=== PATIENT | female | born 1995 | race Caucasian/White ===

== ENCOUNTER → 2016-06-26 | Outpatient (REF) | payer BC ==
[~2016-06-26] MED LIST: AMOX500C PO; IBUP800T23 PO; PERC5TAB6 PO; PRENTAB9 PO
== END ==
LOC: M LAB REF 17:18
PROVIDERS: ATTEND Obstetrics & Gynecology
DX: Z36 Encounter for antenatal screening of mother (principal)

== ENCOUNTER 2016-07-03 05:35 | Inpatient (IN) | payer BC, MEDICAID ==
[2016-07-03] VITALS (8 sets, daily range): BP systolic 120–147; BP diastolic 65–85
[~2016-07-03] VITALS: Ht 177.8 cm; Wt 87.5 kg
[~2016-07-03 05:35] MED LIST changes: -IBUP800T23 PO; -PERC5TAB6 PO
[2016-07-03] MEDS ORDERED: LR 500 ML IV ONE (06:00)
[2016-07-03] MEDS ORDERED: BICITRA 30ML SOLN UDC PO ONE (06:15)
[2016-07-03 06:28] LABS: MEAN CORPUSCULAR HEMOGLOBIN 26.9 pg (27.0-33.0); MEAN CORPUSCULAR HGB CONC 31.9 g/dl (32.0-36.5); MEAN CORPUSCULAR VOLUME 84.5 fl (80.0-96.0); RED CELL DISTRIBUTION WIDTH 14.6 % (11.5-14.5); WHITE BLOOD COUNT 10.3 K/mm3 (4.0-10.0)
[2016-07-03] MEDS ORDERED: LR 1,000 ML IV SCH ×2 (06:30→09:30)
[2016-07-03] MEDS ORDERED: IBUP800T23 PO (07:38)
[2016-07-03] MEDS ORDERED: PERC5TAB6 PO (07:40)
[2016-07-03] MEDS ORDERED: NALOXONE INJ 0.4 MG/1 ML VIAL (J2310) IV PRN ×2 (07:59)
[2016-07-03] MEDS ORDERED: METOCLOPRAMIDE INJ 10MG/2ML VIAL (J2765) IV PRN ×2 (07:59→09:30)
[2016-07-03] MEDS ORDERED: ONDANSETRON 4MG/2ML VIAL (J2405) IV PRN ×3 (07:59→09:45)
[2016-07-03] MEDS ORDERED: NALBUPHINE HCL 10 MG/ML AMP (J2300) IV PRN (07:59)
[2016-07-03] MEDS ORDERED: KETOROLAC 60 MG/2 ML VIAL (J1885) As Ordered ONE (08:37)
[2016-07-03] MEDS ORDERED: ONDANSETRON 4MG/2ML VIAL (J2405) As Ordered ONE (08:37)
[2016-07-03] MEDS ORDERED: MORPHINE PRES-FREE INJ 10 MG/10 ML VIAL (J2274) As Ordered ONE (08:37)
[2016-07-03] MEDS ORDERED: ePHEDrine SULFATE 25 MG/5 ML(5MG/ML) SYRINGE As Ordered ONE (08:37)
[2016-07-03] MEDS ORDERED: PHENYLephrine HCL 500 MCG/5 ML (100MCG/ML) SYRINGE (J2370) As Ordered ONE (08:37)
[2016-07-03] MEDS ORDERED: OXYTOCIN INJ 10 UNITS/ML VIAL (J2590) As Ordered ONE ×2 (08:37→08:56)
[2016-07-03] MEDS ORDERED: fentaNYL 100 MCG/2 ML INJECTION (J3010) IV PRN (09:30)
[2016-07-03] MEDS ORDERED: PERCOCET 5MG/325MG TAB PO PRN ×2 (09:30→09:45)
[2016-07-03] MEDS: LR 1,000 ML IV SCH ×2 (09:32→17:32)
[2016-07-03] MEDS ORDERED: OXYTOCIN DRIP 30 UNITS in APPROPRIATE DILUENT 1 EA IV SCH (09:32)
--- NOTE | 2016-07-03 09:43 | RO ---
DATE OF PROCEDURE: 07/03/2016 PREPROCEDURE DIAGNOSIS: Marginal placenta previa. POSTPROCEDURE DIAGNOSIS: Placenta previa. PROCEDURE: Primary lower transverse section. SURGEON: Tiffany Hyatt MD ELECTRONIC ORGAN TECHNICIAN: Cecilio Guevara DO First year resident [employer] DO ANESTHESIA: Spinal. ESTIMATED BLOOD LOSS: 500 mL. INTRAVENOUS FLUIDS: 200 mL of lactated ringer solution. URINE OUTPUT: 200 mL. PREOPERATIVE ANTIBIOTICS: 2 grams of Ancef. OPERATIVE FINDINGS: Live born female , scores 8 and 9, weight 2710 grams or 6 pounds 1 ounce. Placenta posterior and over cervix, consistent with placenta previa. SPECIMENS: Cord blood and placenta. DESCRIPTION OF PROCEDURE: After informed consent was obtained and written content was reviewed, the patient was brought to the operating room where spinal anesthesia was then placed. She was placed in the supine position with a left lateral tilt. A Bishop catheter was then placed and set to gravity. She was then prepped and draped in normal sterile fashion. A time out in the operating room was then performed identifying the patient, the procedure to be performed, as well as drug allergies. Anesthesia was tested and deemed to be adequate. A Pfannenstiel skin incision was then made and carried down to the underlying rectus fascia. The fascia was then scored and this incision was extended bilaterally. The fascia was then dissected off the underlying rectus muscles both superiorly and inferiorly. The rectus muscles were in the midline. The peritoneum was then entered sharply. The vesicouterine peritoneum was then identified and it was then excised to create a bladder flap. The bladder blade was placed to retract back the bladder. A curvilinear incision was then made in the lower uterine segment. Amniotomy was then performed productive of clear fluid. The head was brought to the level of the incision and was delivered with the aid of a Kiwi vacuum atraumatically, followed by delivery of shoulders and corpus. The cord was clamped times two and was cut. The was brought over to the warmer with a good cry. The placenta was then delivered grossly intact. The uterus was then exteriorized and cleared of all clots and debris. The uterine incision was then closed in two layers using #0 Vicryl for the first layer in a running locking fashion, followed by a second layer for imbrication in a running nonlocking fashion. The abdomen was then suctioned. The uterus was returned to the patient's abdomen. It was reinspected and noted to be hemostatic. The anterior peritoneum was then reapproximated using #3-0 Vicryl. The rectus muscles were reapproximated using #3-0 Vicryl. The fascia was then closed using #0 Vicryl in a running nonlocking fashion. The subcutaneous tissue was then suctioned and irrigated. Jazz's fascia was reapproximated with #3-0 Vicryl. Several subdermal stitches were placed with #3-0 Vicryl. The skin was closed with #4-0 Monocryl in a subcuticular fashion. The incision was then cleaned and dried. Mastisol was applied above and below the incision. Steri-Strips were applied over the incision. The incision was then dressed. The patient was then taken to recovery in stable condition. Counts were correct. The couple has decided to name their daughter, Med. MARIBETH
[2016-07-03] MEDS ORDERED: MOM 30ML SUSPENSION UDC PO PRN (09:45)
[2016-07-03] MEDS ORDERED: DOCUSATE SODIUM 100 MG CAP PO PRN (09:45)
[2016-07-03] MEDS ORDERED: RHOGAM 300 MCG (1500 IU) INJ (J2790) IM SCH (09:45)
[2016-07-03] MEDS ORDERED: MEASLES,MUMPS,RUBELLA VACCINE INJ (MMR-II) (90707) SC SCH (09:45)
[2016-07-03] MEDS: KETOROLAC 30 MG/ML VIAL (J1885) IV SCH ×2 (15:08→21:02)
[2016-07-04 02:17] VITALS: BP 136/67
[2016-07-04] MEDS: KETOROLAC 30 MG/ML VIAL (J1885) IV SCH ×2 (02:55→09:02)
[2016-07-04 06:13] VITALS: BP 144/70
[2016-07-04 07:10] LABS: MEAN CORPUSCULAR HEMOGLOBIN 27.1 pg (27.0-33.0); MEAN CORPUSCULAR HGB CONC 31.7 g/dl (32.0-36.5); MEAN CORPUSCULAR VOLUME 85.4 fl (80.0-96.0); RED CELL DISTRIBUTION WIDTH 14.7 % (11.5-14.5); WHITE BLOOD COUNT 12.7 K/mm3 (4.0-10.0)
[2016-07-04] MEDS: PRENATAL VITAMIN TAB PO SCH (09:01)
[2016-07-04 10:15] VITALS: BP 131/76
[2016-07-04] MEDS: PERCOCET 5MG/325MG TAB PO PRN ×2 (13:55→20:33)
[2016-07-04 14:03] VITALS: BP 144/84
[2016-07-04] MEDS: IBUPROFEN 800 MG TAB PO SCH (17:00)
[2016-07-04 18:06] VITALS: BP 136/77
[2016-07-04 22:00] VITALS: BP 134/87
[2016-07-05] MEDS: IBUPROFEN 800 MG TAB PO SCH ×2 (00:25→08:28)
[2016-07-05] MEDS: PERCOCET 5MG/325MG TAB PO PRN (03:56)
[2016-07-05 06:08] VITALS: BP 128/60
--- NOTE | 2016-07-05 08:05 | DSES ---
DATE OF ADMISSION: 07/03/2016 DATE OF DISCHARGE: 07/05/2016 HISTORY: 20-year-old G1 female at 37 weeks gestation presents for primary section due to low lying placenta. The placenta was approximately 1 cm from the internal os. Early revealed a complete placenta previa. HOSPITAL COURSE: On 07/03/2016 the patient underwent a primary low transverse section without complications. The patient's postoperative course was unremarkable. She had adequate return of bladder and bowel function. She was deemed stable for discharge on postoperative day number two. ADMISSION DIAGNOSIS: , 37 weeks, low lying placenta. DISCHARGE DIAGNOSIS: Delivered. PROCEDURE: Primary low transverse section. DISPOSITION: The patient is to followup with Dr. Hyatt in two weeks. Postoperative instructions were reviewed.
[2016-07-05] MEDS: PRENATAL VITAMIN TAB PO SCH (08:27)
== END 2016-07-05 12:35 | disposition home or self-care (01) | DRG 540 ==
LOC: M LDI 05:35 → M OBS 11:07
PROVIDERS: ADMIT Obstetrics & Gynecology; ATTEND Obstetrics & Gynecology
PROC: 10D00Z1 Extraction of Products of Conception, Low, Open Approach (ICD-10-PCS; principal; 2016-07-03 07:30)
DX: O44.23 Partial placenta previa NOS or without hemorrhage, third trimester (principal); Z37.0 Single live birth; Z3A.37 37 weeks gestation of pregnancy; Z87.891 Personal history of nicotine dependence

== ENCOUNTER → 2017-09-26 | Outpatient (CLI) | payer BC, MEDICAID | LOC: M RAD 10:53 | DX: Z34.82 Encounter for supervision of other normal pregnancy, second trimester (principal) | CPT/HCPCS: 76817 ==

== ENCOUNTER → 2017-11-25 | Outpatient (CLI) | payer BC, MEDICAID ==
[2017-11-25 14:33] LABS: BASO % 0.2 % (0.0-1.0); EOS # 0.1 10^3/uL (0.0-0.50); EOS % 0.4 % (0.0-3.0); HEMATOCRIT 33.6 % (36.0-47.0); HEMOGLOBIN 11.1 g/dl (12.0-15.5); IMMATURE GRANULOCYTE % 0.5 % (0-3.0); LYMPH # 2.6 10^3/uL (1.5-6.5); LYMPH % 19.9 % (24.0-44.0); MEAN CORPUSCULAR HEMOGLOBIN 28.7 pg (27.0-33.0); MEAN CORPUSCULAR VOLUME 86.8 fl (80.0-96.0); MONO # 0.7 10^3/uL (0.0-0.8); MONO % 5.1 % (0.0-5.0); NEUTROPHILS # 9.6 10^3/uL (1.8-7.7); NEUTROPHILS % 73.9 % (36.0-66.0); PLATELET COUNT, AUTOMATED 237 10^3/uL (150-450); RED BLOOD COUNT 3.87 10^6/uL (4.00-5.40); RED CELL DISTRIBUTION WIDTH 14.4 % (11.5-14.5)
[2017-11-25 14:52] LABS: GLUCOSE CHALLENGE TEST 1 HOUR 99 MG/DL (LESS THAN 140)
== END ==
LOC: M LAB 13:03
DX: Z34.82 Encounter for supervision of other normal pregnancy, second trimester (principal); Z3A.00 Weeks of gestation of pregnancy not specified
CPT/HCPCS: 82950

== ENCOUNTER → 2017-11-25 | Outpatient (CLI) | payer BC, MEDICAID | LOC: M RAD 11:45 | DX: Z34.82 Encounter for supervision of other normal pregnancy, second trimester (principal) | CPT/HCPCS: 76816 ==

== ENCOUNTER → 2017-12-20 | Outpatient (REF) | payer BC ==
[2017-12-20 19:54] LABS: AMORPHOUS SEDIMENT LARGE (NEGATIVE); APPEARANCE, URINE CLOUDY (CLEAR); BACTERIA, URINE AUTO 1+ (NEGATIVE); BILIRUBIN, URINE AUTO NEGATIVE (NEGATIVE); BLOOD, URINE BLOOD NEGATIVE (NEGATIVE); COLOR, URINE YELLOW (YELLOW); GLUCOSE, URINE (UA) AUTO NEGATIVE (NEGATIVE); KETONE, URINE AUTO NEGATIVE (NEGATIVE); LEUKOCYTE ESTERASE, URINE AUTO NEGATIVE (NEGATIVE); MUCUS, URINE SMALL (NEGATIVE); NITRITE, URINE AUTO NEGATIVE (NEGATIVE); PROTEIN, URINE AUTO NEGATIVE (NEGATIVE); RBC, URINE AUTO 1 /HPF (0-3); SPECIFIC GRAVITY URINE AUTO 1.013 (1.002-1.035); SQUAMOUS EPITHELIAL CELL UR AU 9 /HPF (0-6); UROBILINOGEN, URINE AUTO 0.2 mg/dL (0.0-2.0); WBC, URINE AUTO 0 /HPF (0-3)
== END ==
LOC: M LAB REF 17:05
DX: Z34.82 Encounter for supervision of other normal pregnancy, second trimester (principal); Z3A.00 Weeks of gestation of pregnancy not specified

== ENCOUNTER 2018-02-02 11:27 | Outpatient (CLI) | payer BC ==
[~2018-02-02 11:27] MED LIST changes: -AMOX500C PO; +NITROFURANTOIN (MACROBID) 100 MG CAP PO; -PRENTAB9 PO
[2018-02-02] MEDS: LACTATED RINGER'S 1000 ML IV (12:26)
[2018-02-02 12:40] LABS: APPEARANCE, URINE HAZY (CLEAR); BACTERIA, URINE AUTO 1+ (NEGATIVE); BILIRUBIN, URINE AUTO NEGATIVE (NEGATIVE); BLOOD, URINE BLOOD 2+ (NEGATIVE); COLOR, URINE YELLOW (YELLOW); GLUCOSE, URINE (UA) AUTO NEGATIVE (NEGATIVE); KETONE, URINE AUTO NEGATIVE (NEGATIVE); LEUKOCYTE ESTERASE, URINE AUTO NEGATIVE (NEGATIVE); MUCUS, URINE SMALL (NEGATIVE); NITRITE, URINE AUTO NEGATIVE (NEGATIVE); PROTEIN, URINE AUTO 1+ mg/dL (NEGATIVE); RBC, URINE AUTO TNTC /HPF (0-3); SPECIFIC GRAVITY URINE AUTO 1.012 (1.002-1.035); SQUAMOUS EPITHELIAL CELL UR AU 8 /HPF (0-6); UROBILINOGEN, URINE AUTO 0.2 mg/dL (0.0-2.0); WBC, URINE AUTO 4 /HPF (0-3)
[2018-02-02] MEDS: LR 1,000 ML IV (13:20)
[2018-02-02] MEDS: NITROFURANTOIN (MACROBID) 100 MG CAP PO (14:00)
== END 2018-02-02 14:43 | disposition home or self-care (01) ==
LOC: M LDO 11:27
DX: O26.893 Other specified pregnancy related conditions, third trimester (principal); R10.9 Unspecified abdominal pain; O23.43 Unspecified infection of urinary tract in pregnancy, third trimester; O47.03 False labor before 37 completed weeks of gestation, third trimester; Z3A.36 36 weeks gestation of pregnancy
CPT/HCPCS: 59025

== ENCOUNTER → 2018-02-04 | Outpatient (REF) | payer BC, MEDICAID | LOC: M LAB REF 17:38 | DX: Z34.83 Encounter for supervision of other normal pregnancy, third trimester (principal) | CPT/HCPCS: 87081 ==

== ENCOUNTER 2018-02-18 05:34 | Inpatient (IN) | payer BC, MEDICAID ==
[2018-02-18] MEDS: LR 1,000 ML IV ×4 (06:20→17:46)
[2018-02-18 06:27] LABS: HEMATOCRIT 34.1 % (36.0-47.0); HEMOGLOBIN 10.8 g/dl (12.0-15.5); MEAN CORPUSCULAR HEMOGLOBIN 26.7 pg (27.0-33.0); MEAN CORPUSCULAR HGB CONC 31.7 g/dl (32.0-36.5); MEAN CORPUSCULAR VOLUME 84.4 fl (80.0-96.0); PLATELET COUNT, AUTOMATED 226 10^3/uL (150-450); RED BLOOD COUNT 4.04 10^6/uL (4.00-5.40); RED CELL DISTRIBUTION WIDTH 14.6 % (11.5-14.5); WHITE BLOOD COUNT 9.9 10^3/uL (4.0-10.0)
[2018-02-18] MEDS ORDERED: MORPHINE PRES-FREE INJ 10 MG/10 ML VIAL (J2274) As Ordered (07:18)
[2018-02-18] MEDS ORDERED: OXYTOCIN INJ 10 UNITS/ML VIAL (J2590) As Ordered ×2 (07:19)
[2018-02-18] MEDS: BICITRA 30ML SOLN UDC PO (07:19)
[2018-02-18] MEDS ORDERED: KETOROLAC 60 MG/2 ML VIAL (J1885) As Ordered (07:24)
[2018-02-18] MEDS ORDERED: ONDANSETRON 4MG/2ML VIAL (J2405) As Ordered (07:24)
[2018-02-18] MEDS ORDERED: NALOXONE INJ 0.4 MG/1 ML VIAL (J2310) IV ×2 (07:49)
[2018-02-18] MEDS ORDERED: ONDANSETRON 4MG/2ML VIAL (J2405) IV ×2 (07:49→09:45)
[2018-02-18] MEDS ORDERED: ATROPINE SULF 0.4 MG/ML 1ML VIAL (J0461) As Ordered (07:57)
[2018-02-18] MEDS ORDERED: ePHEDrine SULFATE 25 MG/5 ML(5MG/ML) SYRINGE As Ordered (07:58)
[2018-02-18] MEDS ORDERED: PERCOCET 5MG/325MG TAB PO (09:45)
[2018-02-18] MEDS ORDERED: fentaNYL 100 MCG/2 ML INJECTION (J3010) IV (09:45)
[2018-02-18] MEDS ORDERED: OXYTOCIN 30 UNITS IN 0.9% NaCl 500ML IV BAG (J2590) As Ordered (09:49)
[2018-02-18] MEDS: OXYTOCIN DRIP 30 UNITS in APPROPRIATE DILUENT 1 EA IV (10:00)
[2018-02-18] MEDS ORDERED: MEASLES,MUMPS,RUBELLA VACCINE INJ (MMR-II) (90707) SC (10:00)
[2018-02-18] MEDS ORDERED: RHOGAM 300 MCG (1500 IU) INJ (J2790) IM (10:00)
[2018-02-18] MEDS ORDERED: MOM 30ML SUSPENSION UDC PO (10:00)
[2018-02-18] MEDS: METOCLOPRAMIDE INJ 10MG/2ML VIAL (J2765) IV (11:59)
[2018-02-18] MEDS: KETOROLAC 30 MG/ML VIAL (J1885) IV ×2 (15:29→20:56)
[2018-02-18] MEDS: DOCUSATE SODIUM 100 MG CAP PO (20:56)
[2018-02-18] MEDS: NALBUPHINE HCL 10 MG/ML AMP (J2300) IV (21:06)
[2018-02-19] MEDS: KETOROLAC 30 MG/ML VIAL (J1885) IV (03:24)
[2018-02-19] MEDS: PERCOCET 5MG/325MG TAB PO ×3 (03:57→19:35)
[2018-02-19 07:03] LABS: HEMATOCRIT 24.3 % (36.0-47.0); MEAN CORPUSCULAR HEMOGLOBIN 27.2 pg (27.0-33.0); MEAN CORPUSCULAR HGB CONC 32.1 g/dl (32.0-36.5); MEAN CORPUSCULAR VOLUME 84.7 fl (80.0-96.0); PLATELET COUNT, AUTOMATED 178 10^3/uL (150-450); RED BLOOD COUNT 2.87 10^6/uL (4.00-5.40); RED CELL DISTRIBUTION WIDTH 14.7 % (11.5-14.5); WHITE BLOOD COUNT 13.5 10^3/uL (4.0-10.0)
[2018-02-19 07:06] LABS: HEMOGLOBIN 7.8 g/dl (12.0-15.5)
[2018-02-19] MEDS: PRENATAL VITAMINS CHEWABLE TABLET PO (08:09)
[2018-02-19] MEDS: IBUPROFEN 800 MG TAB PO ×2 (11:16→18:37)
[2018-02-20] MEDS: IBUPROFEN 800 MG TAB PO ×2 (03:13→10:01)
[2018-02-20] MEDS: PERCOCET 5MG/325MG TAB PO (03:13)
[2018-02-20] MEDS: PRENATAL VITAMINS CHEWABLE TABLET PO (10:00)
== END 2018-02-20 16:14 | disposition home or self-care (01) | DRG 540 ==
LOC: M LDI 05:34 → M OBS 11:29
PROVIDERS: Obstetrics & Gynecology
PROC: 10D00Z1 Extraction of Products of Conception, Low, Open Approach (ICD-10-PCS; principal; 2018-02-18 07:30)
DX: O34.211 Maternal care for low transverse scar from previous cesarean delivery (principal); Z3A.39 39 weeks gestation of pregnancy; Z37.0 Single live birth

== ENCOUNTER 2018-04-16 22:15 | Emergency (ER) | payer BC, MEDICAID ==
[2018-04-16] MEDS: MORPHINE 4 MG/ML 1ML VIAL/SYRINGE (J2270) IV (23:18)
[2018-04-16 23:19] LABS: BASO % 0.3 % (0.0-1.0); EOS # 0.1 10^3/uL (0.0-0.50); EOS % 0.9 % (0.0-3.0); HEMATOCRIT 35.1 % (36.0-47.0); IMMATURE GRANULOCYTE % 0.2 % (0-3.0); LYMPH # 3.2 10^3/uL (1.5-6.5); LYMPH % 33.8 % (24.0-44.0); MEAN CORPUSCULAR HEMOGLOBIN 26.2 pg (27.0-33.0); MEAN CORPUSCULAR HGB CONC 31.3 g/dl (32.0-36.5); MEAN CORPUSCULAR VOLUME 83.6 fl (80.0-96.0); MONO # 0.6 10^3/uL (0.0-0.8); MONO % 6.7 % (0.0-5.0); NEUTROPHILS # 5.5 10^3/uL (1.8-7.7); NEUTROPHILS % 58.1 % (36.0-66.0); PLATELET COUNT, AUTOMATED 244 10^3/uL (150-450); RED CELL DISTRIBUTION WIDTH 15.9 % (11.5-14.5); WHITE BLOOD COUNT 9.5 10^3/uL (4.0-10.0)
[2018-04-16 23:51] LABS: ALBUMIN 3.9 GM/DL (3.2-5.2); ALKALINE PHOSPHATASE 83 U/L (45-117); ALT/SGPT 28 U/L (12-78); ANION GAP 3 MEQ/L (8-16); AST/SGOT 14 U/L (7-37); BILIRUBIN,TOTAL 0.2 MG/DL (0.2-1.0); BLOOD UREA NITROGEN 13 MG/DL (7-18); C REACTIVE PROTEIN QUANTITATIV < 0.30 MG/DL (0.00-0.30); CALCIUM LEVEL 8.5 MG/DL (8.5-10.1); CARBON DIOXIDE LEVEL 29 MEQ/L (21-32); CHLORIDE LEVEL 107 MEQ/L (98-107); CREATININE FOR GFR 0.76 MG/DL (0.55-1.30); GLOMERULAR FILTRATION RATE > 60.0 (>60); GLUCOSE, FASTING 87 MG/DL (70-100); POTASSIUM SERUM 4.1 MEQ/L (3.5-5.1); SODIUM LEVEL 139 MEQ/L (136-145); TOTAL PROTEIN 6.9 GM/DL (6.4-8.2)
[2018-04-16 23:52] LABS: KETONE, URINE AUTO RFX NEGATIVE (NEGATIVE); LEUKOCYTE ESTERASE UR AUTO RFX NEGATIVE (NEGATIVE); MUCUS, URINE RFX SMALL (NEGATIVE); NITRITE, URINE AUTO RFX NEGATIVE (NEGATIVE); RBC, URINE AUTO RFX 1 /HPF (0-3); SPECIFIC GRAVITY UR AUTO RFX 1.026 (1.002-1.035); SQUAM EPITHELIAL CELL UR AURFX 4 /HPF (0-6); WBC, URINE AUTO RFX 4 /HPF (0-3)
[2018-04-17 00:32] LABS: CONTROL LINE UCG INT CTR LINE PRESENT; URINE PREG TEST NEGATIVE (NEGATIVE)
[2018-04-17] MEDS: NORCO 5/325MG TABLET (BULK FOR ED) PO (01:00)
== END 2018-04-17 01:10 | disposition home or self-care (01) ==
LOC: M ED 04-17 01:10
DX: N83.291 Other ovarian cyst, right side (principal); D25.2 Subserosal leiomyoma of uterus; F41.9 Anxiety disorder, unspecified; F32.9 Major depressive disorder, single episode, unspecified; Z88.0 Allergy status to penicillin
CPT/HCPCS: J2270

== ENCOUNTER → 2018-12-26 | Outpatient (REF) | payer BC, MEDICAID ==
[~2018-12-26] MED LIST changes: +AMOX500C PO; +HYDR-3715 PO; +IBUP1TAB7 PO; +NITR100C2 PO; -NITROFURANTOIN (MACROBID) 100 MG CAP PO; +PERC5TAB12 PO; +PERCOCET PO; +PRENTAB9 PO
== END ==
LOC: M LAB REF 17:17
PROVIDERS: ATTEND Advanced Practice Midwife
DX: N92.6 Irregular menstruation, unspecified (principal); Z12.4 Encounter for screening for malignant neoplasm of cervix

== ENCOUNTER → 2018-12-26 | Outpatient (CLI) | payer BC, MEDICAID ==
[2018-12-26 18:00] LABS: HEMATOCRIT 37.2 % (36.0-47.0); HEMOGLOBIN 12.2 g/dl (12.0-15.5); MEAN CORPUSCULAR HEMOGLOBIN 27.7 pg (27.0-33.0); MEAN CORPUSCULAR HGB CONC 32.8 g/dl (32.0-36.5); MEAN CORPUSCULAR VOLUME 84.5 fl (80.0-96.0); PLATELET COUNT, AUTOMATED 219 10^3/uL (150-450); WHITE BLOOD COUNT 8.2 10^3/uL (4.0-10.0)
[2018-12-26 18:03] LABS: HCG, SERUM QUALITATIVE NEGATIVE (NEGATIVE)
[2018-12-26 18:11] LABS: LUTEINIZING HORMONE 14.2 mIU/mL
[2018-12-30 00:07] LABS: DEHYDROEPIANDROSTERONE SULFATE 405.4 ug/dL (110.0-431.7); TESTOSTERONE FREE (DIRECT) 2.6 pg/mL (0.0-4.2)
== END ==
LOC: M SMT 14:43
PROVIDERS: ATTEND Advanced Practice Midwife
DX: L68.0 Hirsutism (principal); N92.6 Irregular menstruation, unspecified

== ENCOUNTER → 2019-01-01 | Outpatient (CLI) | payer BC, MEDICAID ==
--- NOTE | 2019-01-02 03:33 | REP ---
Clinical: abnormal bleeding. Menorrhagia Technique: Transabdominal pelvic ultrasound followed by transvaginal examination for better evaluation of the endometrium and adnexa with color Doppler evaluation of the ovaries. Findings: Bladder is unremarkable and measures 7.9 x 7.1 x 2.5 cm . Normal anteverted uterus measures 9.3 x 3.9 x 4.2 cm . The endometrial complex measures 4.1 mm thickness. No discrete uterine or endometrial abnormalities are appreciated. section scar noted. Bilateral ovaries are normal in appearance and vascularity without evidence for torsion. Right ovary measures 4.0 x 2.2 x 3.6 cm ; R I = 0.37 . Left ovary measures 3.7 x 1.1 x 2.4 cm ; R I = 0.49 . No pelvic fluid or adnexal mass lesion. . Impression: 1. Normal pelvic ultrasound. Electronically Signed by Pito Lezama MD 01/02/2019 03:24 A
== END ==
LOC: M RAD 13:16
PROVIDERS: ATTEND Advanced Practice Midwife
DX: N92.6 Irregular menstruation, unspecified (principal)

== ENCOUNTER → 2019-01-23 | Outpatient (REF) | payer BC, MEDICAID ==
[2019-01-23 20:33] LABS: CHLAMYDIA DNA AMPLIFICATION NEGATIVE (NEGATIVE); GC DNA AMPLIFICATION NEGATIVE (NEGATIVE)
== END ==
LOC: M LAB REF 17:04
PROVIDERS: ATTEND Advanced Practice Midwife
DX: N92.6 Irregular menstruation, unspecified (principal)

== ENCOUNTER → 2020-07-07 | Outpatient (REF) | payer BC, MEDICAID ==
[2020-07-07 20:12] LABS: FREE T4 1.1 NG/DL (0.76-1.46); THYROID STIMULATING HORMONE 1.25 uIU/ML (0.358-3.740)
== END ==
LOC: M PLALAB 14:37
PROVIDERS: ATTEND Advanced Practice Midwife
DX: Z12.4 Encounter for screening for malignant neoplasm of cervix (principal); E04.9 Nontoxic goiter, unspecified
CPT/HCPCS: 36415; 84439; 84443; G0123

== ENCOUNTER → 2021-07-05 | Outpatient (REF) | payer MEDICAID ==
[2021-07-05 11:39] LABS: HEMATOCRIT 38.2 % (36.0-47.0); HEMOGLOBIN 12.3 g/dl (12.0-15.5); MEAN CORPUSCULAR HEMOGLOBIN 28.6 pg (27.0-33.0); MEAN CORPUSCULAR HGB CONC 32.2 g/dl (32.0-36.5); MEAN CORPUSCULAR VOLUME 88.8 fl (80.0-96.0); PLATELET COUNT, AUTOMATED 238 10^3/uL (150-450); WHITE BLOOD COUNT 6.9 10^3/uL (4.0-10.0)
[2021-07-05 12:30] LABS: ALT/SGPT 19 U/L (12-78); BILIRUBIN,TOTAL 0.4 MG/DL (0.2-1.0); BLOOD UREA NITROGEN 12 MG/DL (7-18); CALCIUM LEVEL 9.4 MG/DL (8.5-10.1); CARBON DIOXIDE LEVEL 30 MEQ/L (21-32); CHLORIDE LEVEL 108 MEQ/L (98-107); CHOLESTEROL LEVEL 188 MG/DL (<200); CHOLESTEROL RISK RATIO 2.379 (<5); CREATININE FOR GFR 0.85 MG/DL (0.55-1.30); FREE T4 1.15 NG/DL (0.76-1.46); GLOMERULAR FILTRATION RATE > 60.0 (>60); GLUCOSE, FASTING 95 MG/DL (70-100); HDL CHOLESTEROL 79 MG/DL (>40); LDL CHOLESTEROL 99 MG/DL (<100); NON-HDL-C 109 MG/DL; SODIUM LEVEL 142 MEQ/L (136-145); THYROID STIMULATING HORMONE 0.963 uIU/ML (0.358-3.740); TOTAL PROTEIN 7.1 GM/DL (6.4-8.2); TRIGLYCERIDES LEVEL 49 MG/DL (<150)
== END ==
LOC: M SFHCCLAY 08:42
PROVIDERS: ATTEND Nurse Practitioner Family
DX: F32.A Depression, unspecified (principal); Z13.220 Encounter for screening for lipoid disorders

== ENCOUNTER → 2022-06-10 | Outpatient (CLI) | payer MEDICAID ==
[~2022-06-10] MED LIST changes: +CLON1TAB8 PO; +FLUO20CA22 PO; +LAMO150T3 PO; +PROP10TA56 PO
== END ==
LOC: M LABSMTC 11:05
PROVIDERS: ATTEND Anesthesiology
DX: Z01.812 Encounter for preprocedural laboratory examination (principal); Z11.52 Encounter for screening for COVID-19

== ENCOUNTER 2022-06-14 09:35 | Day surgery (SDC) | payer MEDICAID ==
[~2022-06-14] VITALS: Ht 170.2 cm; Wt 63.5 kg
[2022-06-14] MEDS ORDERED: LR 1,000 ML IV SCH ×3 (10:20→13:05)
[2022-06-14] MEDS ORDERED: LIDOCAINE 2% 100MG/5ML SDV (FOR ANES.) As Ordered ONE (10:48)
[2022-06-14] MEDS ORDERED: ROCURONIUM BROMIDE 50MG/5ML VIAL As Ordered ONE (10:48)
[2022-06-14] MEDS ORDERED: ONDANSETRON 4MG 2ML VIAL As Ordered ONE (10:48)
[2022-06-14] MEDS ORDERED: propofoL 200 MG/20 ML VIAL As Ordered ONE (10:48)
[2022-06-14] MEDS ORDERED: fentaNYL 100 MCG/2 ML INJECTION As Ordered ONE (10:48)
[2022-06-14] MEDS ORDERED: MIDAZOLAM INJ 2MG/2ML VIAL As Ordered ONE (10:49)
[2022-06-14] MEDS ORDERED: ACETAMINOPHEN 1000MG 100ML IV BAG As Ordered ONE (10:51)
[2022-06-14] MEDS ORDERED: LIDOCAINE W/EPINEPHRINE 1% 20ML VIAL As Ordered ONE (10:51)
[2022-06-14] MEDS ORDERED: BUPIVACAINE/EPIN 0.5% 30ML VIAL As Ordered ONE (10:51)
[2022-06-14] MEDS ORDERED: oxyCODONE 5MG TAB PO PRN (11:55)
[2022-06-14] MEDS ORDERED: HYDROMORPHONE HCL 0.5 MG/ 0.5 ML SYRINGE IV PRN (11:55)
[2022-06-14] MEDS ORDERED: fentaNYL 100 MCG/2 ML INJECTION IV PRN (11:55)
[2022-06-14] MEDS ORDERED: ONDANSETRON 4MG 2ML VIAL IV PRN (11:55)
[2022-06-14 13:15] VITALS: BP 110/71
== END 2022-06-14 13:20 | disposition home or self-care (01) ==
LOC: M SDC 09:35
PROVIDERS: ATTEND Otolaryngology
DX: J35.01 Chronic tonsillitis (principal); D64.9 Anemia, unspecified; K58.9 Irritable bowel syndrome, unspecified; F32.A Depression, unspecified; F41.9 Anxiety disorder, unspecified; Z90.89 Acquired absence of other organs; Z79.899 Other long term (current) drug therapy
CPT/HCPCS: 42826; 88302; J1100; J2405

== ENCOUNTER → 2022-09-21 | Outpatient (REF) | payer MEDICAID ==
[2022-09-21 19:30] LABS: GC DNA AMPLIFICATION NEGATIVE (NEGATIVE)
== END ==
LOC: M SFHCCLAY 14:43
PROVIDERS: ATTEND Physician Assistant
DX: R30.0 Dysuria (principal); Z11.3 Encounter for screening for infections with a predominantly sexual mode of transmission

== ENCOUNTER → 2023-04-15 | Outpatient (REF) | payer BC ==
[2023-04-15 17:27] LABS: BASO % 0.3 % (0.0-1.0); EOS # 0.1 10^3/uL (0.0-0.5); EOS % 0.6 % (0.0-3.0); HEMATOCRIT 38.2 % (36.0-47.0); HEMOGLOBIN 12.3 g/dl (12.0-15.5); LYMPH # 2.6 10^3/uL (1.5-5.0); LYMPH % 22.8 % (24.0-44.0); MEAN CORPUSCULAR HEMOGLOBIN 29.2 pg (27.0-33.0); MEAN CORPUSCULAR HGB CONC 32.2 g/dl (32.0-36.5); MEAN CORPUSCULAR VOLUME 90.7 fl (80.0-96.0); MONO # 0.7 10^3/uL (0.0-0.8); MONO % 5.9 % (2.0-8.0); NEUTROPHILS # 7.9 10^3/uL (1.5-8.5); NEUTROPHILS % 70.1 % (36.0-66.0); PLATELET COUNT, AUTOMATED 251 10^3/uL (150-450); RED BLOOD COUNT 4.21 10^6/uL (4.00-5.40); WHITE BLOOD COUNT 11.2 10^3/uL (4.0-10.0)
[2023-04-15 18:01] LABS: ALKALINE PHOSPHATASE 73 U/L (46-116); ALT/SGPT 12 U/L (7.0-40); AST/SGOT 12 U/L (<34); BILIRUBIN,TOTAL 0.4 MG/DL (0.3-1.2); BLOOD UREA NITROGEN 14 MG/DL (9-23); CALCIUM LEVEL 9.2 MG/DL (8.5-10.1); CARBON DIOXIDE LEVEL 30 MMOL/L (20-31); CHLORIDE LEVEL 103 MMOL/L (98-107); CREATININE FOR GFR 0.63 MG/DL (0.55-1.30); FOLATE 18.68 NG/ML (>5.4); GLOMERULAR FILTRATION RATE > 60.0 (>60); GLUCOSE, FASTING 88 MG/DL (60-100); POTASSIUM SERUM 4.1 MMOL/L (3.5-5.1); SODIUM LEVEL 138 MMOL/L (136-145); THYROID STIMULATING HORMONE 0.873 uIU/ML (0.55-4.78); TOTAL PROTEIN 6.8 G/DL (5.7-8.2); VITAMIN B12 LEVEL 272 PG/ML (211-911)
== END ==
LOC: M SFHCCLAY 11:15
PROVIDERS: ATTEND Physician Assistant
DX: R20.2 Paresthesia of skin (principal)

== ENCOUNTER → 2023-05-13 | Outpatient (CLI) | payer BC | LOC: M OUTALCOH 09:10 | PROVIDERS: ATTEND Psychiatry & Neurology Psychiatry | DX: F10.10 Alcohol abuse, uncomplicated (principal) ==

== ENCOUNTER → 2024-03-31 | Outpatient (REF) | payer OTHER ==
[~2024-03-31] MED LIST changes: +FLUO-365 PO; -FLUO20CA22 PO
[2024-03-31 17:07] LABS: BASO % 0.5 % (0.0-1.0); EOS # 0.1 10^3/uL (0.0-0.5); HEMATOCRIT 35.2 % (36.0-47.0); HEMOGLOBIN 11.5 g/dl (12.0-15.5); LYMPH # 2.9 10^3/uL (1.5-5.0); MEAN CORPUSCULAR HEMOGLOBIN 28.8 pg (27.0-33.0); MEAN CORPUSCULAR HGB CONC 32.7 g/dl (32.0-36.5); MONO # 0.5 10^3/uL (0.0-0.8); MONO % 6.7 % (2.0-8.0); NEUTROPHILS # 4.1 10^3/uL (1.5-8.5); NEUTROPHILS % 53.5 % (36.0-66.0); PLATELET COUNT, AUTOMATED 241 10^3/uL (150-450); WHITE BLOOD COUNT 7.7 10^3/uL (4.0-10.0)
[2024-03-31 17:38] LABS: ALKALINE PHOSPHATASE 56 U/L (35-104); ALT/SGPT 20 U/L (7.0-40); AST/SGOT 22 U/L (<34); BILIRUBIN,TOTAL 0.6 MG/DL (0.3-1.2); BLOOD UREA NITROGEN 10 MG/DL (9-23); CALCIUM LEVEL 9.9 MG/DL (8.5-10.1); CARBON DIOXIDE LEVEL 31 MMOL/L (20-31); CHLORIDE LEVEL 104 MMOL/L (98-107); CREATININE FOR GFR 0.71 MG/DL (0.55-1.30); FERRITIN 19.2 NG/ML (7.3-270.7); FREE T4 1.23 NG/DL (0.89-1.76); GLOMERULAR FILTRATION RATE > 60.0 (>60); GLUCOSE, FASTING 87 MG/DL (60-100); IRON (FE) 72 UG/DL (50-170); PERCENT SATURATION 21.9 % (13.2-45.0); POTASSIUM SERUM 4.3 MMOL/L (3.5-5.1); SODIUM LEVEL 139 MMOL/L (136-145); TOTAL IRON BINDING CAPACITY 329 UG/DL (250-425)
== END ==
LOC: M SFHCCLAY 10:44
PROVIDERS: ATTEND Nurse Practitioner Family
DX: F41.9 Anxiety disorder, unspecified (principal); F31.81 Bipolar II disorder; F32.A Depression, unspecified; R53.83 Other fatigue; Z79.899 Other long term (current) drug therapy

== ENCOUNTER → 2024-05-07 | Outpatient (REF) | payer OTHER | LOC: M SFHCCLAY 13:26 | PROVIDERS: ATTEND Physician Assistant | DX: R82.90 Unspecified abnormal findings in urine (principal) ==

== ENCOUNTER → 2024-05-13 | Outpatient (CLI) | payer MEDICAID, OTHER ==
[2024-05-13 15:25] LABS: LUTEINIZING HORMONE 4.4 mIU/ML
[2024-05-13 15:26] LABS: ESTRADIOL 59.2 PG/ML; PROLACTIN 5.62 NG/ML
[2024-05-13 15:27] LABS: PROGESTERONE 1.04 NG/ML
== END ==
LOC: M LAB 14:25
PROVIDERS: ATTEND Nurse Practitioner Family
DX: Z31.69 Encounter for other general counseling and advice on procreation (principal); E28.2 Polycystic ovarian syndrome; E04.9 Nontoxic goiter, unspecified; Z12.4 Encounter for screening for malignant neoplasm of cervix; Z11.51 Encounter for screening for human papillomavirus (HPV)

== ENCOUNTER → 2024-05-15 | Outpatient (CLI) | payer MEDICAID, OTHER | LOC: M RAD 10:16 | PROVIDERS: ATTEND Nurse Practitioner Family | DX: E04.1 Nontoxic single thyroid nodule (principal) ==

== ENCOUNTER 2024-06-25 07:58 | Emergency (ER) | payer OTHER ==
[~2024-06-25] VITALS: Ht 167.6 cm; Wt 70.5 kg
[2024-06-25 08:00] VITALS: BP 139/65; TEMP 100; O2SAT 99
[2024-06-25] MEDS ORDERED: TRAZ-252 (08:07)
[2024-06-25] MEDS ORDERED: PARO5TAB (08:07)
[2024-06-25] MEDS: ACETAMINOPHEN 325 MG TAB PO ONE (11:11)
== END 2024-06-25 12:40 | disposition home or self-care (01) ==
LOC: M ED 07:58
DX: S93.401A Sprain of unspecified ligament of right ankle, initial encounter (principal); W10.8XXA Fall (on) (from) other stairs and steps, initial encounter; Y92.009 Unspecified place in unspecified non-institutional (private) residence as the place of occurrence of the external cause; Y93.9 Activity, unspecified; Y99.9 Unspecified external cause status

== ENCOUNTER → 2024-07-27 | Outpatient (CLI) | payer OTHER ==
[~2024-07-27] MED LIST changes: +PARO5TAB; +TRAZ-252
== END ==
LOC: M RAD 07:11
PROVIDERS: ATTEND Physician Assistant
DX: M25.571 Pain in right ankle and joints of right foot (principal); M25.471 Effusion, right ankle

== ENCOUNTER → 2024-08-13 | Outpatient (CLI) | payer OTHER | LOC: M PLARAD 09:57 | PROVIDERS: ATTEND Physician Assistant | DX: S93.491A Sprain of other ligament of right ankle, initial encounter (principal); M19.071 Primary osteoarthritis, right ankle and foot; Y93.9 Activity, unspecified; Y92.9 Unspecified place or not applicable ==